=== PATIENT | female | born 1950 | race African-American/Black ===

== ENCOUNTER → 2016-12-19 | Outpatient (CLI) | payer OTHER ==
[~2016-12-19] MED LIST: ALBU0.63
--- NOTE | 2016-12-22 08:57 | RSPPFT ---
DATE OF PROCEDURE: 12/19/16 COMMENTS: Spirometry with FVC of 2.2 predicted 2.7, FEV1 of 1.9 predicted 1.9, FEV1/FVC ratio 83% predicted 71%. Lung volumes are within the predicted range. DLCO is 82% of predicted. IMPRESSION: On the basis of the above, patient has flow values, lung volumes and DLCO within the predicted range.
== END ==
LOC: HRSP 06:47
PROVIDERS: ATTEND Internal Medicine Pulmonary Disease
DX: J45.909 Unspecified asthma, uncomplicated (principal); R05 Cough
CPT/HCPCS: 94060; 94620; 94726; 94729